=== PATIENT | male | born 2000 | race Caucasian/White ===

== ENCOUNTER 2021-07-28 15:18 | Emergency (ER) | payer OTHER, SELFPAY ==
[2021-07-28 15:34] VITALS: BP 138/78; PULSE 88; RESP 18; TEMP 37.5; O2SAT 100
--- NOTE | 2021-07-28 16:08 | ED.WOUNDLAC ---
HPI - Wound/Laceration General Chief Complaint: Wound/Laceration Stated Complaint: Cut Rt Thumb Source: patient and RN notes reviewed Limitations: no limitations History of Present Illness HPI narrative: The patient, who is left-handed, presents with right thumb injury. Patient states he was at work prior to arrival when he sustained a right thumb avulsion/laceration from metal packing straps . He complains of mild pain and bleeding from a 1 cm flap that involves the radial aspect, of distal fifth of the thumb including nail. Patient is hesitant/declines tetanus immunization, suturing. Discussed plan to provide wound care and Steri-Strip. Related Data Home Medications Medication Instructions Recorded Confirmed cetirizine [Zyrtec] 10 mg PO DAILY 07/28/21 07/28/21 Allergies Allergy/AdvReac Type Severity Reaction Status Date / Time No Known Allergies Allergy Verified 07/28/21 15:23 Review of Systems Review of Systems: General/Constitutional: No weight loss,fever Eyes: N0: Redness,discharge Ears/Nose/Throat: No: Epistaxis,ear discharge Respiratory: Denies: Hemoptysis Gastrointestinal: No Vomiting, Bleeding-rectal Skin: No Lumps, eruption Neurologic: No Focal Weakness,Sz Hematologic: Denies: Petechiae/Purpura Psychiatric: No: Suicida ideationl PMFSH Comments At time of signature, agree with nursing past medical, surgical history. There is no relevant family history pertinent to the presenting complaint Exam Narrative: General Appearance: Well appearing, Conjunctiva clear Mouth/Throat: Normal appearing, Normal lips, Supple Respiratory: Airway patent, No respiratory distress Skin: Warm, Dry, Normal color, 1 cm radial based flap of the distal thumb including distal nail MS-thumb: Normal strength (mostly intact, limited flexion/extension by pain), Tenderness (distally, with mild decreased ROM), no swelling, Other (no anterior drawer) Neurological: A&O x3, Speech clear, CN II-XII intact Psychiatric: Normal mood, Normal affect Course Vital Signs Vital signs: Vital Signs Temperature 99.5 F 07/28/21 15:34 Pulse Rate 88 07/28/21 15:34 Respiratory Rate 18 07/28/21 15:34 Blood Pressure 138/78 07/28/21 15:34 Pulse Oximetry 100 07/28/21 15:34 Temperature 99.5 F 07/28/21 15:34 Pulse Rate 88 07/28/21 15:34 Respiratory Rate 18 07/28/21 15:34 Blood Pressure 138/78 07/28/21 15:34 Pulse Oximetry 100 07/28/21 15:34 Procedures Other Procedure Procedure 1: Other Procedure: Wound Care/Dressing care #1: Date: 07/28/21 Debridement Necessary: No Type of Dressing: Steri strips , adhesive , dry sterile tube gauze Neurovascular Functions Intact After Dressing Application: Yes Patient Tolerated Procedure: well Discharge Plan Discharge Clinical Impression: Laceration of thumb, right Qualifiers: Encounter type: initial encounter Damage to nail status: with damage Foreign body presence: without foreign body Qualified Code(s): S61.111A - Laceration without foreign body of right thumb with damage to nail, initial encounter Patient Disposition: Home, Self-Care Condition: Stable Instructions: Skin Adhesive Care (ED) Prescriptions: New mupirocin 2 % ointment 1 applic TOPICAL TID Qty: 30 RF: 0 cephalexin 500 mg capsule 1,000 mg PO Q12H 3 Days Qty: 12 RF: 0 No Action cetirizine [Zyrtec] 10 mg Tablet 10 mg PO DAILY RF: 0 Follow-up/Referrals: PHYSICIAN,LOBBY PORTER [Primary Care Provider] -
== END 2021-07-28 16:17 | disposition home or self-care (01) ==
PROVIDERS: Emergency Provider Emergency Medicine
DX: S61.011A Laceration without foreign body of right thumb without damage to nail, initial encounter (principal); W45.8XXA Other foreign body or object entering through skin, initial encounter; Y99.0 Civilian activity done for income or pay
CPT/HCPCS: 99213; G0463

== ENCOUNTER 2023-02-01 08:47 | Outpatient (CLI) | payer OTHER, SELFPAY ==
--- NOTE | ~2023-02-01 | CT_ITS ---
CT Scan of the Chest without Contrast: Clinical Indication: Calcified granuloma Technique: Contiguous sections were acquired throughout the chest without intravenous contrast. Dose reduction technique was used on this scan by utilizing automated exposure control and iterative recon struction technique. The dose-length product (DLP) was 212.83 mGy-cm. Findings: There is no evidence of any significant mediastinal, hilar or axillary lymphadenopathy. Small calcifi ed left hilar lymph nodes are present. The mediastinal soft tissues appear normal. There is no evidence of pleural or pericardial effusion. Calcified left lower lobe granuloma noted. Lungs are otherwise clear. Images through the upper abdomen reveal no abnormalities. Impression: No acute abnormality. Evidence of prior granulomatous disease. Reviewed, dictated and finalized at location . Impression: No acute abnormality. Evidence of prior granulomatous disease.
== END 2023-02-01 08:48 ==
LOC: MICIMG 08:48
PROVIDERS: PCP Family Medicine; Visit Provider Physician Assistant
DX: J98.4 Other disorders of lung (principal)
CPT/HCPCS: 71250